=== PATIENT | female | born 1950 | race African-American/Black ===

== ENCOUNTER 2021-03-23 10:16 | Inpatient (IN) | payer MEDICARE, OTHER ==
[~2021-03-23] VITALS: Ht 157.5 cm; Wt 72.6 kg
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
--- NOTE | 2021-03-23 10:43 | NUR ---
URINE SAMPLE SENT TO LAB.
[2021-03-23 11:01] LABS: BASOPHILS % (AUTO) 0.6 % (0.0-2.0); EOSINOPHILS % (AUTO) 0.9 % (0.0-6.0); HEMATOCRIT 42 % (33-45); HEMOGLOBIN 13.8 g/dL (11.5-14.8); LYMPHOCYTES # (AUTO) 1.6 K/uL (0.8-4.8); LYMPHOCYTES % (AUTO) 30.5 % (20.0-44.0); MEAN CORPUSCULAR HGB CONC 33 g/dl (31.0-36.0); MEAN CORPUSCULAR VOLUME 81 fL (82-100); MONOCYTES # (AUTO) 0.4 K/uL (0.1-1.30); NEUTROPHILS # (AUTO) 3.1 K/uL (1.8-8.9); PLATELET COUNT (AUTO) 210 K/uL (150-450); RED BLOOD CELL COUNT(AUTO) 5.23 MIL/uL (4.0-5.2); WHITE BLOOD COUNT (AUTO) 5.1 K/uL (4.3-11.0)
[2021-03-23 11:16] LABS: CARBON DIOXIDE 30 mmol/L (21-32); CHLORIDE 105 mmol/L (98-107); CREATININE 0.9 mg/dL (0.6-1.3); GLUCOSE 90 mg/dL (74-106); POTASSIUM 4.4 mmol/L (3.5-5.1); SODIUM SERUM 144 mmol/L (136-145); UREA NITROGEN, BLOOD 11 mg/dL (7-18)
[2021-03-23 11:21] LABS: ACETAMINOPHEN 0 ug/ml (10-30); ALANINE AMINOTRANSFERASE 18 U/L (12-78); ALBUMIN 3.7 g/dL (3.4-5.0); ALCOHOL, BLOOD < 3 mg/dL (0-0); ALKALINE PHOSPHATASE 78 U/L (46-116); ASPARTATE AMINOTRANSFERASE 17 U/L (15-37); BILIRUBIN,DIRECT 0.1 mg/dL (0.0-0.2); BILIRUBIN,TOTAL 0.3 mg/dL (0.2-1.0); TOTAL PROTEIN, SERUM 7.4 g/dL (6.4-8.2)
[2021-03-23 11:23] LABS: BILIRUBIN,URINE Negative (NEGATIVE); COLOR,URINE YELLOW (YELLOW); LEUKOCYTE ESTERASE ,URINE Small (NEGATIVE); NITRITE, URINE Negative (NEGATIVE); PROTEIN,URINE Negative (NEGATIVE); UGLUCOSE Negative (NEGATIVE); UROBILINOGEN,URINE 0.2 EU/dL (0.2)
[2021-03-23 11:25] LABS: BACTERIA,URINE Few /HPF (None Seen); SQUAMOUS EPITHELIAL CELL,UR Few /HPF (None Seen)
[2021-03-23] MEDS ORDERED: OLAN5TAB3 PO (12:16)
[2021-03-23] MEDS ORDERED: DIVA250T4 PO (12:16)
[2021-03-23] MEDS ORDERED: ACET325T53 PO (12:16)
--- NOTE | 2021-03-23 12:44 | NUR ---
DOM CERDA CALLED FOR CRISIS EVALUATION.
--- NOTE | 2021-03-23 13:42 | NUR ---
DOM CERDA AT BEDSIDE FOR EVALUATION
--- NOTE | 2021-03-23 14:05 | NUR ---
GOT BED 215-A
--- NOTE | 2021-03-23 15:13 | NUR ---
REPORT GIVEN TO NURSE CORDOVA FROM GPS
--- NOTE | 2021-03-23 15:15 | NUR ---
PATIENT TRANSFERRED TO ROOM 215A IN STABLE CONDITION.
[2021-03-23 16:00] VITALS: BP 142/85
[2021-03-23] MEDS ORDERED: TEMAZEPAM 7.5 MG CAPSULE PO PRN (16:00)
[2021-03-23] MEDS ORDERED: ACETAMINOPHEN 325 MG TABLET PO PRN (16:00)
[2021-03-23] MEDS ORDERED: MAG HYDROX/AL HYDROX/SIMETH 30 ML UDC PO PRN (16:00)
[2021-03-23] MEDS ORDERED: MAGNESIUM HYDROXIDE 30 ML UDC PO PRN (16:00)
[2021-03-23] MEDS ORDERED: BLOOD SUGAR DIAGNOSTIC 1 EACH STRIP IN ONE (16:00)
[2021-03-23] MEDS ORDERED: LORAZEPAM 0.5 MG TABLET PO PRN (16:00)
[2021-03-23 16:02] VITALS: BP 142/83
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
--- NOTE | 2021-03-23 20:00 | NUR ---
RN NOTE PATIENT REFUSED BLOOD PRESSURE CHECK AT THIS TIME DESPITE OF RISKS & BENEFITS EXPLANATIONS. WILL CONTINUE TO MONITOR.
[2021-03-23] MEDS: OLANZAPINE 5 MG TABLET PO SCH (21:26)
[2021-03-24 07:37] LABS: ALBUMIN 3.3 g/dL (3.4-5.0); BILIRUBIN,TOTAL 0.4 mg/dL (0.2-1.0); CALCIUM, SERUM 8.7 mg/dL (8.5-10.1); CHOLESTEROL 194 mg/dL (<200); CREATININE 0.8 mg/dL (0.6-1.3); HDL CHOLESTEROL 69 mg/dL (40-60); LDL 125 mg/dL (0-99); POTASSIUM 4.6 mmol/L (3.5-5.1); TOTAL PROTEIN, SERUM 6.8 g/dL (6.4-8.2); TRIGLYCERIDES 48 mg/dL (30-150)
[2021-03-24 08:00] VITALS: BP 131/71
[2021-03-24 16:00] VITALS: BP 143/86
--- NOTE | 2021-03-24 16:15 | NUR ---
Initial Discharge Plan Pt plans to return to her prior living arrangement at [facility] [[address], [place] [address]; ]. SW will work with the pt and the MD regarding appropriate D/C planning. SW will form a safe and proper D/C plan.
--- NOTE | 2021-03-24 19:30 | NUR ---
GPS RN NOTE, RECEIVED PATIENT AWAKE AND IN BED, NO S/S OR COMPLAINTS OF PAIN AT THIS TIME. PATIENT IS DISPLAYING NO S/S OF APPARENT DISTRESS AT THIS TIME. PATIENT BREATHING IS UNLABORED WITH EQUAL RISE AND FALL OF THE CHEST. PATIENT IS ALERT AND ORIENTED X 3 ON ROOM AIR WITH A SPO2 98%. PATIENT IS COMPLIANT WITH MEDICATIONS, PARANOID, RESTLESS AT TIMES, AND COOPERATIVE. PATIENT DENIES SUICIDAL AND HOMICIDAL IDEATIONS AT THIS TIME. PATIENT EDUCATED ON THE USE OF THE CALL DELACRUZ. PATIENT BED SIDE RAILS UP X 2 FOR SAFETY. PATIENT BED IS LOCKED, LOW, WITH BED ALARM ON. WILL CONTINUE TO MONITOR THIS PATIENT Q15 MINUTES WITH THE HELP OF STAFF TO MAINTAIN SAFETY.
--- NOTE | 2021-03-24 20:21 | NUR ---
GPS RN NOTE, PATIENT HAS A COMPLAINT OF R HIP PAIN AT A 4 OUT OF 10 ON THE PAIN SCALE AND IS REQUESTING FOR PAIN MEDICATION AT THIS TIME. PATIENT VITAL SIGNS ARE STABLE. PAGED [facility] AND INFORMED SAVANNAH DIAS DNP OF MY FINDING. SAVANNAH DIAS DNP ORDERED TRAMADOL HCL 100MG PO Q8HR PRN FOR MODERATE PAIN AT A 4-7 ON THE PAIN SCALE. ALL ORDERS NOTED AND CARRIED OUT. WILL CONTINUE TO MONITOR THIS PATIENT WITH THE HELP OF STAFF.
[2021-03-24 20:36] VITALS: BP 143/86
[2021-03-24] MEDS ORDERED: TRAMADOL HCL 50 MG TABLET PO PRN (21:00)
[2021-03-24] MEDS: ACETAMINOPHEN 325 MG TABLET PO PRN (21:13)
--- NOTE | 2021-03-24 21:13 | NUR ---
GPS RN NOTE, PATIENT HAS A COMPLAINT OF RIGHT HIP PAIN AT 6 OUT 10 ON THE PAIN SCALE. PATIENT VITAL SIGNS ARE STABLE. GAVE TYLENOL 650MG PO Q6HR PRN ORDERED. WILL REASSESS PAIN AND I WILL CONTINUE TO MONITOR THIS PATIENT.
[2021-03-24] MEDS: OLANZAPINE 5 MG TABLET PO SCH (21:39)
[2021-03-25 08:00] VITALS: BP 143/83
[2021-03-25] MEDS: ACETAMINOPHEN 325 MG TABLET PO PRN (08:39)
[2021-03-25 16:00] VITALS: BP 158/81
[2021-03-25 20:22] VITALS: BP 150/93
[2021-03-25] MEDS: OLANZAPINE 5 MG TABLET PO SCH (21:37)
[2021-03-26 08:00] VITALS: BP 120/80
[2021-03-26 16:00] VITALS: BP 107/65
[2021-03-26 20:28] VITALS: BP 123/85
[2021-03-26] MEDS: OLANZAPINE 5 MG TABLET PO SCH (21:22)
--- NOTE | 2021-03-27 06:06 | NUR ---
GPS RN NOTES: PATIENT WEEKLY SKIN ASSESSMENT DONE, SKIN INTACT.
[2021-03-27 08:00] VITALS: BP 128/87
[2021-03-27 16:00] VITALS: BP 137/90
--- NOTE | 2021-03-27 19:22 | NUR ---
RN NOTE: RECEIVED PATIENT RESTING HIS ROOM, AWAKE, ALERT AND ORIENTED X3. NO S/SX OF ACUTE RESPIRATORY DISTRESS NOTED. PATIENT IS COOPERATIVE AND PLEASANT. PT DENIES SI/HI/AVH AT THIS TIME. ENCOURAGED OH. TO VERBALIZED ANY CONCERN. SAFETY PRECAUTIONS IN PLACE. WILL CONTINUE TO MONITOR Q15MIN FOR SAFETY AND BEHAVIOR.
[2021-03-27 20:00] VITALS: BP 139/81
[2021-03-27] MEDS ORDERED: OLANZAPINE 5 MG TABLET PO SCH (22:00)
--- NOTE | 2021-03-28 06:40 | NUR ---
GPS RN NOTE: PATIENT SLEPT WELL AT NIGHT. PATIENT WENT OUT OF THE UNIT 3 TIMES FOR SMOKE BREAKS THIS SHIFT. NO BEHAVIORAL ISSUES THIS SHIFT. PATIENT HAS NO S/S OF DISTRESS NOTED. ALL PATIENT CARE NEEDS HAVE BEEN MET ANTICIPATED. WILL CONTINUE TO MONITOR FOR SAFETY AND BEHAVIOR. Addendum: 03/28/21 at 0642 by PHYLLIS SILVA RN INCORRECT DOCUMENTION
--- NOTE | 2021-03-28 06:42 | NUR ---
GPS RN NOTE: PATIENT IS RESTING IN HER ROOM. PATIENT SLEPT WELL AT NIGHT. NO BEHAVIORAL ISSUES THIS SHIFT. PATIENT HAS NO S/S OF DISTRESS NOTED. ALL PATIENT CARE NEEDS HAVE BEEN MET ANTICIPATED. WILL CONTINUE TO MONITOR FOR SAFETY AND BEHAVIOR.
[2021-03-28 08:00] VITALS: BP 139/71
[2021-03-28] MEDS: ACETAMINOPHEN 325 MG TABLET PO PRN (13:02)
--- NOTE | 2021-03-28 13:03 | NUR ---
RN-CO: TYLENOL 350 MG PO GIVEN FOR RIGHT HIP PAIN 11/28.
[2021-03-28 16:00] VITALS: BP 108/55
[2021-03-28 20:00] VITALS: BP 127/88
[2021-03-28] MEDS: OLANZAPINE 5 MG TABLET PO SCH (21:33)
[2021-03-29 08:00] VITALS: BP 131/69
--- NOTE | 2021-03-29 12:40 | NUR ---
SNF Referral SW faxed clinicals to [facility] (fax: [phone]), for review.
[2021-03-29 16:00] VITALS: BP 99/63
[2021-03-29 22:03] VITALS: BP 148/91
[2021-03-29] MEDS: OLANZAPINE 5 MG TABLET PO SCH (22:18)
--- NOTE | 2021-03-30 06:36 | NUR ---
RN CLOSING NOTE PATIENT SLEPT THROUGH MOST OF THE NIGHT, PT WAS MED COMPLIANT AND COOPERATIVE WITH CARE. PT STABLE ON RA, NO S/S OF DISTRESS OR SOB NOTED, BREATHING EVEN AND UNLABORED. PATIENT DENIES SI/HI AT THIS TIME. NO AGGRESSIVE BEHAVIOR OBSERVED. MEDICATIONS GIVEN ORDERED, PT NEEDS MET THROUGHOUT SHIFT. SAFETY MEASURES IN PLACE: BED LOCKED IN LOW POSITION, SIDE RAILS UP X 2, Q15 MIN CHECKS FOR SAFETY AND BEHAVIOR. WILL ENDORSE TO DAY SHIFT NURSE FOR CONTINUITY OF CARE
[2021-03-30 08:00] VITALS: BP 140/79
--- NOTE | 2021-03-30 12:30 | NUR ---
Probable Cause Hearing Pt's 5250 hold is upheld on the grounds of gravely disabled.
[2021-03-30 16:00] VITALS: BP 135/75
[2021-03-30 21:07] VITALS: BP 134/79
[2021-03-30] MEDS ORDERED: OLANZAPINE 5 MG TABLET PO SCH (22:00)
--- NOTE | 2021-03-31 04:22 | NUR ---
GPS/RN PATIENT WAS OFFERED SLEEPING PILL AT 2100 BUT REFUSED. PER PATIENT "I DON'T TAKE SLEEPING PILL".
[2021-03-31 08:00] VITALS: BP 143/96
[2021-03-31 16:00] VITALS: BP 121/75
[2021-03-31 21:06] VITALS: BP 158/89
[2021-03-31] MEDS: OLANZAPINE 5 MG TABLET PO SCH (21:13)
[2021-04-01 08:00] VITALS: BP 139/87
[2021-04-01 16:00] VITALS: BP 137/83
--- NOTE | 2021-04-01 18:12 | NUR ---
quiet most of day,keeping to self.dr. medina here to see pt.
[2021-04-01 20:49] VITALS: BP 152/83
[2021-04-01] MEDS: OLANZAPINE 5 MG TABLET PO SCH (21:51)
--- NOTE | 2021-04-01 22:53 | NUR ---
MISTAKENLY DOCUMENTED ON FINN'S ACCOUNT THE PREVIOUS MORNING RN.
[2021-04-02 08:00] VITALS: BP 122/83
[2021-04-02 16:00] VITALS: BP 142/79
[2021-04-02] MEDS: ACETAMINOPHEN 325 MG TABLET PO PRN (18:36)
--- NOTE | 2021-04-02 18:37 | NUR ---
RN-CO: TYLENOL 650 MG PO FOR LOWER BACK PAIN 10/29.
[2021-04-02 20:49] VITALS: BP 141/77
[2021-04-02] MEDS: OLANZAPINE 5 MG TABLET PO SCH (21:16)
[2021-04-03 08:00] VITALS: BP 150/88
[2021-04-03 16:00] VITALS: BP 149/85
[2021-04-03 20:00] VITALS: BP 148/87
[2021-04-03] MEDS: OLANZAPINE 5 MG TABLET PO SCH (22:04)
[2021-04-04 08:00] VITALS: BP 146/73
[2021-04-04 16:00] VITALS: BP 120/78
--- NOTE | 2021-04-04 18:28 | NUR ---
cooperative,med compliant.
[2021-04-04 20:00] VITALS: BP 141/73
--- NOTE | 2021-04-04 20:29 | NUR ---
Covid-19 swab test done as ordered for possible discharge tomorrow morning. Tolerated well. Sample delivered to lab. Charge nurse RN aware.
[2021-04-04] MEDS: OLANZAPINE 5 MG TABLET PO SCH (21:28)
[2021-04-05 08:00] VITALS: BP 140/73
--- NOTE | 2021-04-05 08:00 | NUR ---
received pt. in am alert and oriented with plans for discharge.vs stable.
--- NOTE | 2021-04-05 10:00 | NUR ---
RN-CO; DR CRUZ GAVE ORDERS TO DISCONTINUE HOLD AND DISCHARGE PT TO SNF TODAY. NOTED
--- NOTE | 2021-04-05 15:30 | NUR ---
report called to [facility] at transferring facility.ambulance here report to drivers.pt. denies s/i,h/i and auditory hallucinations.all papers signed along with belonging sheet.taken via amb, to facility.
[2021-04-05 16:00] VITALS: BP 154/82
[2021-04-05] MEDS ORDERED: ATORVASTATIN 10 MG TABLET PO SCH (22:00)
== END 2021-04-05 15:30 | DRG 885 ==
LOC: ER 10:28 → GPS 15:06
PROVIDERS: ADMIT Psychiatry & Neurology Psychosomatic Medicine; ATTEND Internal Medicine
DX: F25.0 Schizoaffective disorder, bipolar type (principal); E43 Unspecified severe protein-calorie malnutrition; N39.0 Urinary tract infection, site not specified; J44.9 Chronic obstructive pulmonary disease, unspecified; Z20.822 Contact with and (suspected) exposure to COVID-19; G31.84 Mild cognitive impairment of uncertain or unknown etiology; I11.9 Hypertensive heart disease without heart failure; F41.9 Anxiety disorder, unspecified; F32.9 Major depressive disorder, single episode, unspecified; G62.9 Polyneuropathy, unspecified; Z88.3 Allergy status to other anti-infective agents; Z88.5 Allergy status to narcotic agent; Z88.2 Allergy status to sulfonamides; Z79.899 Other long term (current) drug therapy; Z91.81 History of falling; F29 Unspecified psychosis not due to a substance or known physiological condition; Z73.6 Limitation of activities due to disability; R27.8 Other lack of coordination; R53.1 Weakness
CPT/HCPCS: 36415; 80048-TC; 80053-TC; 80061-TC; 80076-TC; 81001; 82962-TC; 85025-TC; 87081-TC; 87086-TC; C9803; G0480

== ENCOUNTER 2024-02-07 18:46 | Inpatient (IN) | payer MEDICARE, OTHER ==
[~2024-02-07] VITALS: Ht 157.5 cm; Wt 54.4 kg
[~2024-02-07 18:46] MED LIST: ACET325T53 PO; DIVA250T4 PO; OLAN5TAB3 PO
[2024-02-07 20:10] LABS: BASOPHILS % (AUTO) 0.3 % (0.0-2.0); EOSINOPHILS # (AUTO) 0.1 K/uL (0.0-0.7); EOSINOPHILS % (AUTO) 0.9 % (0.0-6.0); HEMATOCRIT 37 % (33-45); HEMOGLOBIN 12.2 g/dL (11.5-14.8); MEAN CORPUSCULAR HEMOGLOBIN 26 PG (26.0-33.0); MEAN CORPUSCULAR HGB CONC 33 g/dl (31.0-36.0); MEAN CORPUSCULAR VOLUME 80 fL (82-100); MONOCYTES # (AUTO) 0.4 K/uL (0.1-1.30); MONOCYTES % (AUTO) 7.1 % (2.0-12.0); NEUTROPHILS # (AUTO) 3.4 K/uL (1.8-8.9); NEUTROPHILS % (AUTO) 57.7 % (43.0-81.0); PLATELET COUNT (AUTO) 219 K/uL (150-450); RED BLOOD CELL COUNT(AUTO) 4.66 MIL/uL (4.0-5.2); RED CELL DISTRIBUTION WIDTH 15.7 % (11.5-15.0); WHITE BLOOD COUNT (AUTO) 5.9 K/uL (4.3-11.0)
[2024-02-07 20:24] LABS: ACETAMINOPHEN <10 ug/ml (10-30); ALANINE AMINOTRANSFERASE 20 U/L (12-78); ALBUMIN 3.1 g/dL (3.4-5.0); ALCOHOL, BLOOD < 3 mg/dL (0-10); ALKALINE PHOSPHATASE 65 U/L (46-116); ASPARTATE AMINOTRANSFERASE 16 U/L (15-37); BILIRUBIN,DIRECT 0.1 mg/dL (0.0-0.2); BILIRUBIN,TOTAL 0.5 mg/dL (0.2-1.0); CALCIUM, SERUM 9.1 mg/dL (8.5-10.1); CARBON DIOXIDE 28 mmol/L (21-32); CHLORIDE 103 mmol/L (98-107); CREATININE 0.8 mg/dL (0.6-1.3); GLUCOSE 89 mg/dL (74-106); POTASSIUM 3.9 mmol/L (3.5-5.1); SALICYLATE 0.4 mg/dL (2.8-20.0); SODIUM SERUM 136 mmol/L (136-145); TOTAL PROTEIN, SERUM 6.9 g/dL (6.4-8.2); UREA NITROGEN, BLOOD 12 mg/dL (7-18)
[2024-02-07 21:20] LABS: APPEARANCE,URINE CLEAR (CLEAR); BILIRUBIN,URINE NEGATIVE (NEGATIVE); BLOOD, URINE NEGATIVE Ery/uL (NEGATIVE); COLOR,URINE YELLOW (YELLOW); KETONES,URINE NEGATIVE (NEGATIVE); LEUKOCYTE ESTERASE ,URINE 3+ (NEGATIVE); NITRITE, URINE NEGATIVE (NEGATIVE); PH,URINE 7.5 (5.0-8.0); PROTEIN,URINE NEGATIVE (NEGATIVE); UGLUCOSE NEGATIVE (NEGATIVE); UROBILINOGEN,URINE 0.2 EU/dL (0.2)
[2024-02-07 21:27] LABS: AMPHETAMINE, URINE NEGATIVE (NEGATIVE); BARBITURATE, URINE NEGATIVE (NEGATIVE); BENZODIAZEPINE, URINE NEGATIVE (NEGATIVE); CANNABINOID, URINE NEGATIVE (NEGATIVE); COCCAINE, URINE NEGATIVE (NEGATIVE); OPIATE, URINE NEGATIVE (NEGATIVE); PHENCYCLIDINE SCREEN,URINE NEGATIVE (NEGATIVE)
[2024-02-07 21:43] LABS: ADD URINE CULTURE YES; BACTERIA,URINE 1+ /HPF (None Seen); RBC,URINE 0-2 /HPF (0-2); WBC,URINE 21-50 /HPF (0-3)
[2024-02-07 21:44] LABS: MUCUS,URINE Few /LPF (None Seen)
[2024-02-07 22:23] VITALS: O2SAT 100
[2024-02-07] MEDS: NITROFURANTOIN/MONOHYDRATE MACROCRYSTALS 100 MG CAPSULE PO SCH (23:00)
[2024-02-07] MEDS ORDERED: DIVA500T4 PO (23:24)
[2024-02-07] MEDS ORDERED: RISP90SU SQ (23:26)
[2024-02-07] MEDS ORDERED: MAGNESIUM HYDROXIDE 30 ML UDC PO PRN (23:30)
[2024-02-07] MEDS ORDERED: MAG HYDROX/AL HYDROX/SIMETH 30 ML UDC PO PRN (23:30)
[2024-02-07] MEDS ORDERED: LORAZEPAM 0.5 MG TABLET PO PRN (23:30)
[2024-02-08] MEDS: BLOOD SUGAR DIAGNOSTIC 1 EACH STRIP IN ONE (00:14)
[2024-02-08 08:00] VITALS: BP 132/67; TEMP 97.8; O2SAT 96
[2024-02-08] MEDS: NITROFURANTOIN/MONOHYDRATE MACROCRYSTALS 100 MG CAPSULE PO SCH (09:13)
[2024-02-08 10:14] LABS: BASOPHILS % (AUTO) 0.5 % (0.0-2.0); HEMATOCRIT 37 % (33-45); LYMPHOCYTES # (AUTO) 1.6 K/uL (0.8-4.8); LYMPHOCYTES % (AUTO) 32.9 % (20.0-44.0); MEAN CORPUSCULAR HEMOGLOBIN 27 PG (26.0-33.0); MEAN CORPUSCULAR HGB CONC 33 g/dl (31.0-36.0); MEAN CORPUSCULAR VOLUME 81 fL (82-100); MONOCYTES # (AUTO) 0.3 K/uL (0.1-1.30); MONOCYTES % (AUTO) 7.1 % (2.0-12.0); NEUTROPHILS # (AUTO) 2.8 K/uL (1.8-8.9); NEUTROPHILS % (AUTO) 58.5 % (43.0-81.0); PLATELET COUNT (AUTO) 216 K/uL (150-450); RED BLOOD CELL COUNT(AUTO) 4.52 MIL/uL (4.0-5.2); RED CELL DISTRIBUTION WIDTH 15.7 % (11.5-15.0); WHITE BLOOD COUNT (AUTO) 4.8 K/uL (4.3-11.0)
[2024-02-08 11:02] LABS: CHOLESTEROL 182 mg/dL (<200); HDL CHOLESTEROL 68 mg/dL (40-60); LDL 92 mg/dL (0-99); TRIGLYCERIDES 52 mg/dL (30-150)
[2024-02-08 11:03] LABS: ALANINE AMINOTRANSFERASE 13 U/L (12-78); ALBUMIN 2.8 g/dL (3.4-5.0); ALKALINE PHOSPHATASE 71 U/L (46-116); ASPARTATE AMINOTRANSFERASE 9 U/L (15-37); BILIRUBIN,TOTAL 0.6 mg/dL (0.2-1.0); CARBON DIOXIDE 29 mmol/L (21-32); CHLORIDE 105 mmol/L (98-107); GLUCOSE 94 mg/dL (74-106); POTASSIUM 4.1 mmol/L (3.5-5.1); SODIUM SERUM 140 mmol/L (136-145); TOTAL PROTEIN, SERUM 6.6 g/dL (6.4-8.2); UREA NITROGEN, BLOOD 9 mg/dL (7-18)
[2024-02-08] MEDS: DIVALPROEX SODIUM 250 MG TABLET.DR PO SCH (12:57)
[2024-02-08 16:15] VITALS: BP 110/70; TEMP 98; O2SAT 100
[2024-02-08 20:00] VITALS: BP 116/68; TEMP 97.7; O2SAT 95
[2024-02-09 08:00] VITALS: BP 130/74; TEMP 97.7; O2SAT 100
[2024-02-09 16:03] VITALS: BP 111/88; TEMP 97.8; O2SAT 100
[2024-02-09 20:27] VITALS: BP 148/74; TEMP 98.2; O2SAT 99
[2024-02-10 08:00] VITALS: BP 148/71; TEMP 97.7; O2SAT 100
[2024-02-10 16:00] VITALS: BP_SYST 142; BP_SYST 98; BP_DIAS 65; BP_DIAS 85; TEMP 97.8; TEMP 98.3; O2SAT 96; O2SAT 97
[2024-02-10 21:17] VITALS: BP 151/92; TEMP 97.8; O2SAT 98
[2024-02-11 08:00] VITALS: BP 141/76; TEMP 98.2; O2SAT 100
[2024-02-11] MEDS: DIVALPROEX SODIUM 250 MG TABLET.DR PO SCH ×2 (12:33→21:05)
[2024-02-11 16:00] VITALS: BP 132/84; TEMP 98.1; O2SAT 98
[2024-02-11 19:59] VITALS: BP 123/76; TEMP 97.9; O2SAT 100
[2024-02-11] MEDS: ACETAMINOPHEN 325 MG TABLET PO PRN (22:03)
[2024-02-12 08:00] VITALS: BP 128/94; TEMP 97.9; O2SAT 100
[2024-02-12 16:00] VITALS: BP 135/76; TEMP 98.3; O2SAT 100
[2024-02-12] MEDS: risperiDONE 1 MG TABLET PO SCH (16:29)
[2024-02-12 20:00] VITALS: BP 122/71; TEMP 98.3; O2SAT 100
[2024-02-13 08:00] VITALS: BP 127/74; TEMP 98.4; O2SAT 100
[2024-02-13] MEDS: risperiDONE 1 MG TABLET PO SCH (12:35)
[2024-02-13 16:00] VITALS: BP 118/72; TEMP 97.9; O2SAT 99
[2024-02-13 20:00] VITALS: BP 125/76; TEMP 98.6; O2SAT 99
[2024-02-14 08:00] VITALS: BP 102/68; TEMP 97.8; O2SAT 96
[2024-02-14 16:00] VITALS: BP 126/74; TEMP 97.8; O2SAT 97
[2024-02-15 08:00] VITALS: BP 130/96; TEMP 98; O2SAT 100
[2024-02-15 16:00] VITALS: BP 136/76; TEMP 97.9; O2SAT 100
[2024-02-15 20:00] VITALS: BP 130/80; TEMP 98.6; O2SAT 97
[2024-02-16 06:51] LABS: BASOPHILS % (AUTO) 0.4 % (0.0-2.0); EOSINOPHILS % (AUTO) 0.9 % (0.0-6.0); HEMATOCRIT 39 % (33-45); HEMOGLOBIN 12.6 g/dL (11.5-14.8); MEAN CORPUSCULAR HEMOGLOBIN 26 PG (26.0-33.0); MEAN CORPUSCULAR HGB CONC 32 g/dl (31.0-36.0); MEAN CORPUSCULAR VOLUME 81 fL (82-100); MONOCYTES # (AUTO) 0.4 K/uL (0.1-1.30); MONOCYTES % (AUTO) 8.2 % (2.0-12.0); NEUTROPHILS # (AUTO) 2.3 K/uL (1.8-8.9); NEUTROPHILS % (AUTO) 47.5 % (43.0-81.0); PLATELET COUNT (AUTO) 173 K/uL (150-450); RED BLOOD CELL COUNT(AUTO) 4.84 MIL/uL (4.0-5.2); RED CELL DISTRIBUTION WIDTH 15.6 % (11.5-15.0); WHITE BLOOD COUNT (AUTO) 4.7 K/uL (4.3-11.0)
[2024-02-16 07:32] LABS: ALANINE AMINOTRANSFERASE 10 U/L (12-78); ALBUMIN 2.7 g/dL (3.4-5.0); ALKALINE PHOSPHATASE 57 U/L (46-116); ASPARTATE AMINOTRANSFERASE 7 U/L (15-37); BILIRUBIN,TOTAL 0.5 mg/dL (0.2-1.0); CALCIUM, SERUM 9.2 mg/dL (8.5-10.1); CARBON DIOXIDE 28 mmol/L (21-32); CHLORIDE 109 mmol/L (98-107); CREATININE 0.8 mg/dL (0.6-1.3); GLUCOSE 80 mg/dL (74-106); POTASSIUM 4.2 mmol/L (3.5-5.1); SODIUM SERUM 144 mmol/L (136-145); TOTAL PROTEIN, SERUM 6.5 g/dL (6.4-8.2); UREA NITROGEN, BLOOD 16 mg/dL (7-18)
[2024-02-16 07:34] LABS: VALPROIC ACID 75 ug/mL (50-100)
[2024-02-16 08:00] VITALS: BP 128/65; TEMP 97.7; O2SAT 98
[2024-02-16 16:00] VITALS: BP 124/88; TEMP 98.1; O2SAT 98
[2024-02-16 20:27] VITALS: BP 109/77; TEMP 98.6; O2SAT 97
[2024-02-17 08:00] VITALS: BP 144/97; TEMP 98; O2SAT 100
[2024-02-17 16:00] VITALS: BP 107/64; TEMP 98.8; O2SAT 100
[2024-02-17 21:28] VITALS: BP 110/76; TEMP 98.6; O2SAT 100
[2024-02-18 08:00] VITALS: BP 149/99; TEMP 97.9; O2SAT 99
[2024-02-18 16:00] VITALS: BP 114/83; TEMP 98.6; O2SAT 98
[2024-02-18 20:33] VITALS: BP 126/86; TEMP 98.2; O2SAT 99
[2024-02-18] MEDS: TEMAZEPAM 7.5 MG CAPSULE PO PRN (22:53)
[2024-02-19 08:00] VITALS: BP 132/78; TEMP 97.9; O2SAT 100
== END 2024-02-19 14:51 | DRG 885 ==
LOC: ER 18:58 → GPS 22:14
PROVIDERS: ADMIT Nurse Practitioner Psychiatric/Mental Health; ATTEND Nurse Practitioner Family
DX: F25.9 Schizoaffective disorder, unspecified (principal); E44.0 Moderate protein-calorie malnutrition; N39.0 Urinary tract infection, site not specified; R45.851 Suicidal ideations; F29 Unspecified psychosis not due to a substance or known physiological condition; J44.9 Chronic obstructive pulmonary disease, unspecified; Z79.899 Other long term (current) drug therapy; G62.9 Polyneuropathy, unspecified; Z88.5 Allergy status to narcotic agent; Z88.2 Allergy status to sulfonamides; B96.89 Other specified bacterial agents as the cause of diseases classified elsewhere; E88.09 Other disorders of plasma-protein metabolism, not elsewhere classified; Z88.3 Allergy status to other anti-infective agents; Z91.148 Patient's other noncompliance with medication regimen for other reason
CPT/HCPCS: 36415; 80048-TC; 80053-TC; 80061-TC; 80076-TC; 80164-TC; 81001; 82962-TC; 85025-TC; 87081-TC; 87086-TC; 97110-TC; 97116-TC; 97530-TC; G0480